=== PATIENT | female | born 1960 | race African-American/Black ===

== ENCOUNTER 2019-05-28 14:38 | Emergency (ER) | payer BC, OTHER ==
[~2019-05-28] VITALS: Ht 162.6 cm; Wt 81.6 kg
[~2019-05-28 14:38] MED LIST: ALBU17AE26 IH; ESTR2TAB PO; FLUT50DI IH; HYDR25TA4 PO; NIFE60TA83 PO
[2019-05-28 14:51] VITALS: BP_SYST 155
--- NOTE | 2019-05-28 14:55 | NUR ---
Patient to ER bed 01 to gown for evaluation. Side rails up.
[2019-05-28] MEDS ORDERED: IPRATROPIUM/ALBUTEROL SULFATE 3 ML AMPUL.NEB (DUONEB) INH ONE ×2 (15:00→15:45)
--- NOTE | 2019-05-28 15:00 | NUR ---
ER at bedside examining patient.
--- NOTE | 2019-05-28 15:06 | NUR ---
pt currently getting a breathing tx.
[2019-05-28] MEDS ORDERED: methylPREDNISolone SOD SUCC/PF 62.5 MG/ML VIAL IM ONE (15:15)
--- NOTE | 2019-05-28 15:15 | NUR ---
medicated w/ Solu-Medrol IM per MD order.
--- NOTE | 2019-05-28 15:45 | NUR ---
pt pt received a 2nd breathing tx. Reports feeling better.
--- NOTE | 2019-05-28 16:30 | NUR ---
pt reports feeling better
--- NOTE | 2019-05-28 17:07 | NUR ---
Patient given written and verbal discharge instructions and verbalizes understanding. ER MD discussed with patient the results and treatment provided. Patient in stable condition. ID arm band removed. Rx of Prednisone 50mg given. Patient educated on pain management and to follow up with PMD. Pain Scale 0/10. Opportunity for questions provided and answered. Medication side effect fact sheet provided.
[2019-05-28 17:14] VITALS: BP_SYST 145
== END 2019-05-28 17:14 | disposition home or self-care (01) ==
LOC: SED 14:38
DX: J45.901 Unspecified asthma with (acute) exacerbation (principal); K21.9 Gastro-esophageal reflux disease without esophagitis; Z79.899 Other long term (current) drug therapy; Z91.040 Latex allergy status
CPT/HCPCS: 94640; 96372; 99284; J2930; J7620

== ENCOUNTER 2020-02-25 08:31 | Day surgery (SDC) | payer BC ==
[~2020-02-25] VITALS: Ht 162.6 cm; Wt 81.6 kg
[~2020-02-25 08:31] MED LIST changes: +CEFAZOLIN SOD 1 GM in D5W 50 ML IV ONE
[2020-02-25] MEDS ORDERED: ONDANSETRON HCL 4 MG/2 ML VIAL IVP ONE (13:02)
[2020-02-25] MEDS ORDERED: SEVOFLURANE 15 MIN GAS INH ONE (13:02)
[2020-02-25] MEDS ORDERED: PROPOFOL 200MG/ 20ML VIAL (DIPRIVAN) IV ONE (13:02)
[2020-02-25] MEDS ORDERED: NS IRRIG SOLN 1000 ML IR ONE (13:02)
[2020-02-25] MEDS ORDERED: DEXAMETHASONE SOD PHOSPHATE 4 MG/ML VIAL IVP ONE (13:02)
[2020-02-25] MEDS ORDERED: BUPIVACAINE /PF 0.25% 30 ML VIAL INJ ONE (13:02)
[2020-02-25] MEDS ORDERED: KETOROLAC TROMETHAMINE 30 MG VIAL IVP ONE (13:02)
[2020-02-25] MEDS ORDERED: LR 1,000 ML IV.SOLN IV ONE (13:02)
[2020-02-25] MEDS ORDERED: fentaNYL CITRATE/PF 100 MCG/2 ML AMP IVP ONE (13:02)
[2020-02-25] MEDS ORDERED: MIDAZOLAM HCL 5 MG/5 ML VIAL IVP ONE (13:02)
[2020-02-25] MEDS ORDERED: HYDROmorphone 1 MG INJ. 1 MG/ML AMPUL IVP PRN ×2 (13:45)
[2020-02-25] MEDS ORDERED: ONDANSETRON HCL 4 MG/2 ML VIAL IVP PRN (13:45)
[2020-02-25] MEDS ORDERED: LR 1,000 ML IV SCH (13:45)
[2020-02-25] MEDS ORDERED: MEPERIDINE HCL/PF 25 MG/ML DISP.SYRIN IVP PRN (13:45)
[2020-02-25] MEDS ORDERED: MIDAZOLAM HCL 2 MG/2 ML VIAL (VERSED) IVP PRN (13:45)
[2020-02-25] MEDS ORDERED: hydrALAZINE HCL 20 MG/ML VIAL IVP PRN (13:45)
[2020-02-25] MEDS ORDERED: METOCLOPRAMIDE HCL 10 MG/2 ML VIAL IVP PRN (13:45)
[2020-02-25] MEDS ORDERED: HYDROcodone/ACETAMIN 5-325 MG TAB (NORCO/ VICODIN) PO PRN ×2 (14:15)
[2020-02-25] MEDS ORDERED: D5/0.45 NS 1,000 ML IV SCH (14:15)
[2020-02-25 15:12] VITALS: BP_SYST 132
[2020-02-25] MEDS ORDERED: HYDROcodone/ACETAMIN 5-325 MG TAB (NORCO/ VICODIN) ONE (15:28)
== END 2020-02-25 15:50 | disposition home or self-care (01) ==
LOC: SDS 08:31 → SMU 08:31 → EDSTATUS 10:30 → SDS 15:50
PROVIDERS: ATTEND Colon & Rectal Surgery
DX: N60.91 Unspecified benign mammary dysplasia of right breast (principal); I10 Essential (primary) hypertension; E66.9 Obesity, unspecified; E78.5 Hyperlipidemia, unspecified; J45.909 Unspecified asthma, uncomplicated; Z90.89 Acquired absence of other organs; Z90.710 Acquired absence of both cervix and uterus; Z98.890 Other specified postprocedural states; Z79.899 Other long term (current) drug therapy; Z20.828 Contact with and (suspected) exposure to other viral communicable diseases
CPT/HCPCS: 19281; 19301; 88305; 88307; J0690; J1100; J1885; J2250; J2405; J2704; J3010; J3490; J7060; J7120; U0003

== ENCOUNTER 2020-03-24 06:15 | Inpatient (IN) | payer BC ==
[~2020-03-24] VITALS: Ht 162.6 cm; Wt 83.0 kg
[~2020-03-24 06:15] MED LIST changes: -CEFAZOLIN SOD 1 GM in D5W 50 ML IV ONE
[2020-03-24] MEDS ORDERED: CEFAZOLIN SOD 1 GM in D5W 50 ML IV ONE (07:00)
[2020-03-24] MEDS ORDERED: ALBMDI INH (07:46)
[2020-03-24] MEDS ORDERED: OMEP40CA13 PO (07:46)
[2020-03-24] MEDS ORDERED: IBUPROFEN 600 MG TABLET PO ONE ×2 (08:45)
[2020-03-24] MEDS ORDERED: METOCLOPRAMIDE HCL 10 MG/2 ML VIAL IVP PRN ×2 (08:45→10:00)
[2020-03-24] MEDS ORDERED: KETOROLAC TROMETHAMINE 30 MG VIAL IVP PRN ×2 (08:45→10:00)
[2020-03-24] MEDS ORDERED: hydrALAZINE HCL 20 MG/ML VIAL IVP PRN ×2 (08:45→10:00)
[2020-03-24] MEDS ORDERED: MIDAZOLAM HCL 5 MG/5 ML VIAL IVP PRN ×2 (08:45→10:00)
[2020-03-24] MEDS ORDERED: HYDROmorphone 1 MG INJ. 1 MG/ML AMPUL IVP PRN ×3 (08:45→13:30)
[2020-03-24] MEDS ORDERED: NALOXONE HCL 0.4 MG/ML AMP (NARCAN) IVP PRN ×3 (10:15→12:00)
[2020-03-24] MEDS ORDERED: ACETAMINOPHEN 325 MG TABLET PO PRN (10:15)
[2020-03-24] MEDS ORDERED: ONDANSETRON HCL 4 MG/2 ML VIAL IVP PRN (10:15)
[2020-03-24 12:17] VITALS: BP_SYST 130
[2020-03-24] MEDS: CEFAZOLIN 1 GM IVPB PREMIX 50 ML IV SCH ×2 (12:26→20:28)
[2020-03-24] MEDS: HYDROcodone/ACETAMIN 5-325 MG TAB (NORCO/ VICODIN) PO PRN ×3 (12:28→20:32)
[2020-03-24] MEDS: D5/0.45 NS 1,000 ML IV SCH ×2 (12:29→20:30)
[2020-03-24 16:15] VITALS: BP_SYST 118
[2020-03-24 20:00] VITALS: BP_SYST 115
[2020-03-24] MEDS: FAMOTIDINE PF 20 MG/2 ML VIAL IVP SCH (20:29)
[2020-03-25 00:16] VITALS: BP_SYST 128
[2020-03-25] MEDS: HYDROcodone/ACETAMIN 5-325 MG TAB (NORCO/ VICODIN) PO PRN ×2 (01:35→08:57)
[2020-03-25] MEDS: D5/0.45 NS 1,000 ML IV SCH (05:55)
[2020-03-25 08:00] VITALS: BP_SYST 129
[2020-03-25] MEDS: FAMOTIDINE PF 20 MG/2 ML VIAL IVP SCH (08:52)
[2020-03-25] MEDS ORDERED: PANTOPRAZOLE SODIUM 40 MG TAB PO SCH (09:00)
[2020-03-25] MEDS ORDERED: HYDROCHLOROTHIAZIDE 25 MG TABLET (HCTZ) PO SCH (09:00)
[2020-03-25] MEDS ORDERED: ENOXAPARIN SODIUM 30 MG/0.3 ML SYRINGE SUBCUT SCH (09:00)
[2020-03-25] MEDS ORDERED: OMEPRAZOLE Non-Formulary 20 MG CAPSULE.DR PO SCH (09:00)
[2020-03-25] MEDS ORDERED: NIFEdipine 30 MG TAB.ER.24 PO SCH (09:00)
[2020-03-25] MEDS ORDERED: NIFEDIPINE 60 MG TABLET.SA (PROCARDIA XL 60 MG) PO SCH (09:00)
[2020-03-25 10:57] VITALS: BP_SYST 135
[2020-03-25 11:25] VITALS: BP_SYST 126
== END 2020-03-25 12:15 | disposition home or self-care (01) | DRG 583 ==
LOC: SMU 06:15 → SDS 06:15 → SMU 09:14 → EDSTATUS 09:52 → SMU 11:32
PROVIDERS: ADMIT Colon & Rectal Surgery; ATTEND Colon & Rectal Surgery
PROC: 0HTV0ZZ Resection of Bilateral Breast, Open Approach (ICD-10-PCS; principal; 2020-03-24 07:30)
DX: D05.11 Intraductal carcinoma in situ of right breast (principal); J45.909 Unspecified asthma, uncomplicated; E78.5 Hyperlipidemia, unspecified; M17.10 Unilateral primary osteoarthritis, unspecified knee; Z20.828 Contact with and (suspected) exposure to other viral communicable diseases; I10 Essential (primary) hypertension; K21.9 Gastro-esophageal reflux disease without esophagitis; Z86.010 Personal history of colon polyps; Z87.01 Personal history of pneumonia (recurrent); Z90.49 Acquired absence of other specified parts of digestive tract; Z90.710 Acquired absence of both cervix and uterus; Z90.722 Acquired absence of ovaries, bilateral
CPT/HCPCS: 87081; 88307; J0690; J1650; J3490; J7060; J7120; U0003